=== PATIENT | female | born 1960 | race Caucasian/White ===

== ENCOUNTER → 2016-08-26 | Outpatient (CLI) | payer BC ==
[~2016-08-26] MED LIST: PERCOCET PO
--- NOTE | 2016-08-26 10:58 | REP ---
Low-dose lung screening chest CT: The study is performed without IV contrast and presented at lung windowing only. There is a 10 mm faintly visible ground-glass nodule laterally in the right upper lobe on image 41. There are no other nodules or masses. There are no infiltrates or effusions. Impression: The finding is a category [address] with the probability of malignancy less than 1%. Recommendation is for continued annual low-dose chest screening CT. Signed by Dudley Jennings MD 08/26/2016 10:49 A
== END ==
LOC: M RAD 10:19
PROVIDERS: ATTEND Internal Medicine
DX: F17.210 Nicotine dependence, cigarettes, uncomplicated (principal)

== ENCOUNTER → 2019-06-03 | Outpatient (REF) | payer BC | LOC: M LAB REF 16:05 | PROVIDERS: ATTEND Internal Medicine | DX: J44.9 Chronic obstructive pulmonary disease, unspecified (principal) ==

== ENCOUNTER → 2019-08-23 | Outpatient (CLI) | payer BC ==
--- NOTE | 2019-08-23 14:45 | REP ---
REASON FOR EXAM: Tobacco abuse. The latest prior for comparison is 08/26/2016. Once again, as per the protocol, only lung window images were sent to the read station for interpretation. No new abnormal nodules, masses, or opacities have developed. Grossly, the mediastinum and pulmonary vu are unchanged. Grossly, the imaged upper abdomen and imaged osseous structures are unchanged. IMPRESSION: No significant change from the prior exam. Lungs RADS category 2 exam. Electronically Signed by Kenneth Elder DO 08/23/2019 04:06 P
== END ==
LOC: M RAD 10:48
PROVIDERS: ATTEND Internal Medicine
DX: F17.210 Nicotine dependence, cigarettes, uncomplicated (principal)